=== PATIENT | male | born 1955 | race Caucasian/White ===

== ENCOUNTER → 2018-02-02 | Emergency (ER) | payer OTHER ==
[~2018-02-02] VITALS: Ht 177.8 cm; Wt 74.8 kg
[~2018-02-02] MED LIST: PERCOCET 10-321 EACH
== END | disposition home or self-care (01) ==
LOC: ER 18:22 → EDSEX 18:23 → ER 18:23
DX: S61.412A Laceration without foreign body of left hand, initial encounter (principal); W45.8XXA Other foreign body or object entering through skin, initial encounter; Y93.89 Activity, other specified; Y92.89 Other specified places as the place of occurrence of the external cause; Y99.8 Other external cause status

== ENCOUNTER 2025-07-03 06:17 | Outpatient (CLI) | payer OTHER ==
[2025-07-03 07:39] LABS: BASO % 0.6 % (0.1-1.2); EOS # 0.17 (0.04-0.54); EOS % 3.6 % (0.7-7.0); LYMPH # 1.82 (1.18-3.74); LYMPH % 38.7 % (19.3-53.1); MEAN PLATELET VOLUME 12.00 fl (9.4-12.4); MONO # 0.47 (0.24-0.82); MONO % 10.0 % (4.7-12.5); NEUT # 2.20 (1.56-6.13); NEUT % 46.9 % (34.0-71.1); RED CELL DISTRIBUTION WIDTH 13.9 % (11.6-14.4)
[2025-07-03 07:48] LABS: URINE APPEARANCE Clear; URINE BILIRRUBIN Negative (NEGATIVE); URINE BLOOD Negative; URINE COLOR Yellow; URINE GLUCOSE Negative (NEGATIVE); URINE KETONE Negative (NEGATIVE); URINE LEUKOCYTE Trace; URINE NITRATE Negative; URINE PROTEIN Negative (NEGATIVE); URINE UROBILINOGEN 0.2 E.U./dl
[2025-07-03 07:49] LABS: URINE BACTERIA 9.6 uL (0.0-1933); URINE WBC 14.1 uL (0.0-23.2)
[2025-07-03 07:57] LABS: INR 1.00
[2025-07-03 07:59] LABS: URINE CAST 0.14 uL (0.0-1.40); URINE EPITHELIAL CELLS 1.0 uL (0.0-38.8); URINE RBC 0.4 uL (0.0-20.8)
[2025-07-03 08:15] LABS: ALT/SGPT 34.0 U/L (12-78); AST/SGOT 16.0 U/L (15-37); BILIRUBIN TOTAL 0.6 mg/dL (0.3-1.2); BUN CREA RATIO 21.0 (7.0-25.0); CREATININE SERUM 0.99 mg/dL (0.70-1.30); GFR 74.95; GLOBULINA 2.6 G/DL (2.4-3.5); GLUCOSE FASTING 81.0 mg/dL (65-100); OSMOLALITY SERUM 287.0 MOSM/KG (275-295)
[2025-07-03 09:06] LABS: COL EPI 100 SECONDS (82-175)
== END 2025-07-03 06:24 | disposition home or self-care (01) ==
LOC: LAB 06:17 → RAD 06:17
PROVIDERS: ATTEND Orthopaedic Surgery
DX: D64.9 Anemia, unspecified (principal); E88.89 Other specified metabolic disorders; D68.8 Other specified coagulation defects; N39.0 Urinary tract infection, site not specified; Z22.322 Carrier or suspected carrier of Methicillin resistant Staphylococcus aureus; E11.9 Type 2 diabetes mellitus without complications; Z76.89 Persons encountering health services in other specified circumstances

== ENCOUNTER 2025-07-13 11:28 | Day surgery (SDC) | payer OTHER ==
[2025-07-10 13:45] VITALS: BP 131/78
[~2025-07-13] VITALS: Ht 176.5 cm; Wt 78.9 kg
[~2025-07-13 11:28] MED LIST changes: +CARDURA XL4 MG PO; +LIPOFEN150 MG PO; +TRAZODONE HCL50 MG PO
[2025-07-13] MEDS ORDERED: CEFAZOLIN SODIUM 1,000 MG VIAL IV ONE (16:30)
[2025-07-13] MEDS ORDERED: SUGAMMADEX SODIUM 200 MG/2 ML VIAL IV ONE (19:00)
== END 2025-07-13 22:40 | disposition home or self-care (01) ==
LOC: CIR.AMB 11:28
PROVIDERS: ATTEND Orthopaedic Surgery
DX: M75.121 Complete rotator cuff tear or rupture of right shoulder, not specified as traumatic (principal); M75.21 Bicipital tendinitis, right shoulder; M24.111 Other articular cartilage disorders, right shoulder